=== PATIENT | female | born 1955 | race Caucasian/White ===

== ENCOUNTER 2018-07-11 16:02 | Emergency (ER) | payer SELFPAY ==
[~2018-07-11] VITALS: Ht 162.6 cm; Wt 58.6 kg
[2018-07-11 16:06] VITALS: BP 170/87
[2018-07-11] MEDS ORDERED: LIDOcaine 1% 30ml preserv. free vial IJ ONE (16:10)
[2018-07-11] MEDS ORDERED: TETanus/Pertussis (Acell)/Diphther VAC/PF (Tdap-Adult) 0.5ml syringe IM ONE (16:10)
== END 2018-07-11 17:50 | disposition home or self-care (01) ==
LOC: ER 16:03
DX: S61.012A Laceration without foreign body of left thumb without damage to nail, initial encounter (principal); W26.8XXA Contact with other sharp object(s), not elsewhere classified, initial encounter; Y93.89 Activity, other specified; Y92.89 Other specified places as the place of occurrence of the external cause; Y99.8 Other external cause status
CPT/HCPCS: 12001; 73140; 90471; 90715; 99283; J3490

== ENCOUNTER 2018-07-19 09:04 | Emergency (ER) | payer SELFPAY ==
[~2018-07-19] VITALS: Ht 162.6 cm; Wt 59.0 kg
[2018-07-19 09:09] VITALS: BP 120/73
[2018-07-19] MEDS ORDERED: CEPH500C5 PO (10:20)
== END 2018-07-19 11:00 | disposition home or self-care (01) ==
LOC: ER 09:05
DX: S61.012D Laceration without foreign body of left thumb without damage to nail, subsequent encounter (principal); L03.012 Cellulitis of left finger; Z48.02 Encounter for removal of sutures; Z79.2 Long term (current) use of antibiotics; W26.8XXD Contact with other sharp object(s), not elsewhere classified, subsequent encounter
CPT/HCPCS: 64450; 99284